=== PATIENT | female | born 2000 | race Caucasian/White ===

== ENCOUNTER 2024-08-19 06:48 | Day surgery (SDC) | payer OTHER ==
[2024-08-19] MEDS ORDERED: PROPOFOL 20 ML ONE (07:12)
[2024-08-19] MEDS ORDERED: fentaNYL PF 100 MCG/2 ML SYRINGE ONE (07:12)
[2024-08-19] MEDS ORDERED: SUGAMMADEX SODIUM 200 MG/2 ML VIAL ONE (07:37)
[2024-08-19] MEDS ORDERED: Ferric Subsulfate 8 ML TOPICAL SOLN ONE (08:28)
[2024-08-19] MEDS ORDERED: Midazolam HCl 2 mg/2 ml Vial ONE (08:45)
[2024-08-19] MEDS ORDERED: Rocuronium Bromide 10 MG/ML (10ML VIAL) ONE (08:58)
[2024-08-19] MEDS ORDERED: fentaNYL 50 mcg/mL 1 mL Vial ONE (09:51)
[2024-08-19] MEDS ORDERED: Dexamethasone 4 mg/ml Vial ONE (10:29)
[2024-08-19] MEDS ORDERED: Ondansetron PF 4 MG/2 ML Vial ONE (10:29)
[2024-08-19] MEDS ORDERED: Lidocaine 1% PF 5 ML VIAL ONE (10:29)
[2024-08-19] MEDS ORDERED: Hydrocodone-Acetamin 15 ML UDCUP ONE (10:46)
== END 2024-08-19 11:37 | disposition home or self-care (01) ==
LOC: EDBD → SDC 06:48
PROVIDERS: ATTEND Specialist
PROC: 0CTPXZZ Resection of Tonsils, External Approach (ICD-10-PCS; principal; 2024-08-19)
DX: J35.01 Chronic tonsillitis (principal); J35.3 Hypertrophy of tonsils with hypertrophy of adenoids; G47.33 Obstructive sleep apnea (adult) (pediatric)
CPT/HCPCS: 88184; 88304; J1100; J2250; J2405; J2704; J3010